=== PATIENT | male | born 2000 | race Caucasian/White ===

== ENCOUNTER 2023-06-19 04:06 | Emergency (ER) | payer MEDICAID ==
[~2023-06-19] VITALS: Ht 177.8 cm; Wt 59.1 kg
[2023-06-19 04:08] VITALS: BP 148/82; PULSE 76; RESP 16; TEMP 97.7; O2SAT 99
== END 2023-06-19 04:51 | disposition home or self-care (01) ==
LOC: ER 04:07
DX: Z02.79 Encounter for issue of other medical certificate (principal); V89.2XXA Person injured in unspecified motor-vehicle accident, traffic, initial encounter; Y93.89 Activity, other specified; Y92.89 Other specified places as the place of occurrence of the external cause; Y99.8 Other external cause status
CPT/HCPCS: 99283